=== PATIENT | female | born 1960 | race Caucasian/White ===

== ENCOUNTER 2018-02-05 10:58 | Outpatient (CLI) | payer OTHER ==
--- NOTE | 2018-02-05 13:48 | MMO ---
SCREENING MAMMOGRAM: DATE: 02/05/18. HISTORY: Annual screening mammography. COMPARISON: Comparison is made to previous exams from 09/10/16 and 09/20/14. The patient's mammogram is also evaluated using computer-aided detection. FINDINGS: Images demonstrate no definite evidence of masses or lesions. Mammographic appearance is stable. No newly developed masses or lesions seen. IMPRESSION: BI-RADS category 1 - negative exam. BIRADS 1: Negative Routine annual screening mammography (for women over age 40) POS: JESUS
== END 2018-02-05 10:59 | disposition home or self-care (01) ==
LOC: SCSMAMMO 10:58
PROVIDERS: ATTEND Family Medicine
DX: Z12.31 Encounter for screening mammogram for malignant neoplasm of breast (principal)
CPT/HCPCS: 77067

== ENCOUNTER 2018-06-05 20:48 | Emergency (ER) | payer OTHER ==
[2018-06-05 21:22] LABS: #Basophils 0.1 thou/uL (0.0-0.2); #Eosinphils 0.2 thou/uL (0.0-0.7); #Lymphocytes 2.6 thou/uL (1.20-3.40); #Monocytes 0.4 thou/uL (0.11-0.59); #Neutrophils 3.6 thou/uL (1.40-6.50); %Basophils 0.9 % (0.0-1.0); %Eosinophils 2.5 % (0.0-10.0); %Lymphocytes 38.2 % (21.0-51.0); %Monocytes 5.5 % (0.0-10.0); %Neutrophils 52.8 % (42.0-75.0); Hemoglobin 13.4 g/dL (12.0-16.0); Mean Corpuscular HGB CONC 33.5 g/dL (32.0-36.0); Mean Corpuscular Hemoglobin 30.5 pg (27.0-31.0); Mean Corpuscular Volume 91.1 fL (78.0-98.0); Mean Platelet Volume 7.6 fL (7.4-10.4); Platelet Count 504 thou/uL (130-400); RBC Distribution Width 11.7 % (11.5-14.5); White Blood Cell (WBC) Count 6.8 thou/uL (4.8-10.8)
--- NOTE | 2018-06-05 21:30 | RAD ---
CHEST ONE VIEW 06/05/18 HISTORY: Altered mental status. COMPARISON: Chest radiograph 2014. FINDINGS: Mild elevation of the left hemidiaphragm. No focal air space consolidation, pneumothorax or effusion. No acute osseous abnormality. IMPRESSION: No acute intrathoracic abnormality. POS: GREGORY
--- NOTE | 2018-06-05 21:42 | CT ---
CT OF THE BRAIN WITHOUT CONTRAST: 06/05/18 HISTORY: Memory loss. COMPARISON: CT brain 08/05/11. FINDINGS: Similar appearance to the left temporal encephalomalacia. No acute territorial infarct or hemorrhage. No midline shift or mass effect. Prior left craniectomy changes. IMPRESSION: No acute intracranial abnormality. POS: GREGORY
[2018-06-05 21:47] LABS: Troponin I Less than 0.010 ng/mL (< 0.028)
[2018-06-05 21:49] LABS: Bilirubin Negative (Negative); Blood, Urine Negative (Negative); Clarity CLEAR (Clear); Glucose, Urine (Dipstick) Negative (Negative); Leukocyte Negative (Negative); Nitrite Negative (Negative); Protein, Urine (Dipstick) Negative (Neg-Trace); Specific Gravity, Urine 1.009 (1.002-1.036); Urobilinogen 0.2 mg/dL (0.2-1.0); pH, Urine 6.5 (5.0-9.0)
[2018-06-05 23:07] LABS: ALT (SGPT) 14 U/L (8-55); AST (SGOT) 16 U/L (5-34); Albumin 4.6 g/dL (3.5-5.0); Alkaline Phosphatase 133 U/L (40-150); Anion Gap 16 mmol/L (10-20); BUN (Urea Nitrogen) 18 mg/dL (9.8-20.1); Bilirubin, Total 0.4 mg/dL (0.2-1.2); Calc. Creatinine Clearance 0 mL/min (70-130); Carbon Dioxide 25 mmol/L (22-29); Chloride 103 mmol/L (98-107); Estimated GFR-MDRD 71; Globulin 3.1 g/dL (2.4-3.5); Glucose 121 mg/dL (70-105); Potassium 3.9 mmol/L (3.5-5.1); Protein, Total 7.7 g/dL (6.0-8.3); Sodium 140 mmol/L (136-145)
== END 2018-06-06 00:09 | disposition home or self-care (01) ==
LOC: ERS 20:48
DX: G45.4 Transient global amnesia (principal); F32.9 Major depressive disorder, single episode, unspecified; Z79.899 Other long term (current) drug therapy
CPT/HCPCS: 70450; 71045; 80053; 81003; 82553; 83880; 84146; 84484; 85025; 93005

== ENCOUNTER 2018-09-17 12:54 | Outpatient (CLI) | payer OTHER ==
--- NOTE | 2018-09-17 14:02 | BD ---
BONE DENSITOMETRY USING DEXA: HISTORY: Post menopausal screening for osteoporosis. FINDINGS LUMBAR SPINE BMD (g/cm2) T-SCORE Z-SCORE L1: 1.057 0.6 1.7 L2: 1.096 0.6 1.8 L3: 1.031 -0.5 0.7 L4: 1.181 1.1 2.4 TOTAL: 1.094 0.4 1.6 BMD (g/cm2) T-SCORE Z-SCORE NECK: 0.728 -1.1 0.0 TOTAL: 0.849 -0.8 0.0 The 10-year fracture risk for a major osteoporotic fracture is 6.3% and for a hip fracture is 0.3%. IMPRESSION: Osteopenia. POS: OFF
== END 2018-09-17 12:55 | disposition home or self-care (01) ==
LOC: BICMAMMO 12:54
PROVIDERS: ATTEND Family Medicine
DX: M85.859 Other specified disorders of bone density and structure, unspecified thigh (principal)
CPT/HCPCS: 77080

== ENCOUNTER 2020-03-08 15:21 | Outpatient (CLI) | payer OTHER ==
--- NOTE | 2020-03-08 16:24 | MMO ---
Bilateral MAMMO Bilat Screen [facility]. CLINICAL HISTORY: Patient is 59 years old and is seen for screening. The patient has the following family history of breast cancer: mother, at age 65. The patient has no personal history of cancer. VIEWS: The views performed were: bilateral craniocaudal with tomosynthesis and bilateral mediolateral oblique with tomosynthesis. FILMS COMPARED: The present examination has been compared to prior imaging studies performed at [facility] on 06/27/2015, and at [facility] on 08/26/2012, 08/24/2013 and 09/20/2014. This study has been interpreted with the assistance of computer-aided detection. MAMMOGRAM FINDINGS: There are scattered fibroglandular densities. There are no suspicious masses, suspicious calcifications, or new areas of architectural distortion. IMPRESSION: THERE IS NO MAMMOGRAPHIC EVIDENCE OF MALIGNANCY. A ROUTINE FOLLOW-UP MAMMOGRAM IN 1 YEAR IS RECOMMENDED. THE RESULTS OF THIS EXAM WERE SENT TO THE PATIENT. ACR BI-RADS Category 1 - Negative MAMMOGRAPHY NOTE: 1. A negative mammogram report should not delay a biopsy if a dominant of clinically suspicious mass is present. 2. Approximately 10% to 15% of breast cancers are not detected by mammography. 3. Adenosis and dense breasts may obscure an underlying neoplasm. Reported by: RHETT DELGADILLO MD Electonically Signed: [id number]
== END 2020-03-08 15:22 | disposition home or self-care (01) ==
LOC: BICMAMMO 15:21
PROVIDERS: ATTEND Family Medicine
DX: Z12.31 Encounter for screening mammogram for malignant neoplasm of breast (principal); Z80.3 Family history of malignant neoplasm of breast
CPT/HCPCS: 77063; 77067

== ENCOUNTER 2022-07-10 08:22 | Outpatient (CLI) | payer BC | END 2022-07-10 08:23 | disposition home or self-care (01) | LOC: SCSMRI 08:22 | PROVIDERS: ATTEND Family Medicine | DX: M54.41 Lumbago with sciatica, right side (principal); M54.42 Lumbago with sciatica, left side; M47.816 Spondylosis without myelopathy or radiculopathy, lumbar region; M47.817 Spondylosis without myelopathy or radiculopathy, lumbosacral region; M48.061 Spinal stenosis, lumbar region without neurogenic claudication; M48.07 Spinal stenosis, lumbosacral region | CPT/HCPCS: 72148 ==

== ENCOUNTER 2025-05-05 09:38 | Outpatient (CLI) | payer BC | END 2025-05-05 09:39 | disposition home or self-care (01) | LOC: NM 09:38 | PROVIDERS: ATTEND Specialist | DX: T84.84XA Pain due to internal orthopedic prosthetic devices, implants and grafts, initial encounter (principal); M17.0 Bilateral primary osteoarthritis of knee; Z96.651 Presence of right artificial knee joint; Z96.652 Presence of left artificial knee joint; R93.7 Abnormal findings on diagnostic imaging of other parts of musculoskeletal system | CPT/HCPCS: 78315; A9503 ==